=== PATIENT | male | born 1955 | race African-American/Black ===

== ENCOUNTER 2016-10-06 11:25 | Emergency (ER) | payer BC ==
--- NOTE | ~2016-10-06 | CT2 ---
[facility] A Service of [facility] & [facility] RADIOLOGY TEXT RESULTS PATIENT: EWELINA ALARCON LOCATION: [facility] : 55 UNIT #: [id number] AGE: [address]: Roberto Bustos MD SEX: M ORDER DR: [id number] [facility] [address] [place], [place] [address] [id number] MR#: [id number] Acc #: [id number] NAME: EWELINA ALARCON : 1955 SEX: M STUDY DATE/TIME: 10/06/2016 14:19 UNIT: [facility] ROOM: STUDY DESCRIPTION: CT Abd and Pelv W Cont Attending Physician: Roberto Bustos M.D. Ordering Physician: Roberto Bustos M.D. Primary Care Physician: Colin Mondragon M.D. MEDICAL IMAGING REPORT This report is preliminary unless electronic signature is present EXAM CT abdomen and pelvis 10/06 HISTORY Swelling in the groin area for 8 months. Left lower abdominal and groin pain for the last 3 days. TECHNIQUE Axial images were obtained through the abdomen and pelvis following oral and IV contrast administration. Multiplanar reformats were obtained. This CT exam was performed with one or more of the following radiation dose reduction techniques: automatic exposure control, adjustment of mA and/or kV according to patient size, and iterative reconstruction. COMPARISON STUDIES No comparison. FINDINGS ABDOMEN: Lung bases are clear, except for a left lower lobe calcified granuloma. There is a small hiatal hernia. GI tract is otherwise normal. There are bilateral renal cysts. Solid organs are otherwise unremarkable. No adenopathy or free fluid. PELVIS: The distal small bowel is normal. The prostate is enlarged. The appendix is normal. There is intense abnormal fat stranding in the left lower quadrant associated with the sigmoid colon. This presumably reflects acute diverticulitis. Additionally, there is a large left inguinal hernia containing abdominal fat as well as a loop of proximal sigmoid colon. Some of the inflammatory change extends into that hernia sac. Inflammatory change appears to displace the bladder to the right side of the pelvis. The hernia does not appear to be incarcerating. STS. [facility] A Service of [facility] & [facility] RADIOLOGY TEXT RESULTS PATIENT: EWELINA ALARCON [id number] 55 UNIT #: [id number] AGE: [address]: Roberto Bustos MD SEX: M ORDER DR: IMPRESSION 1. Fairly intense left lower quadrant fat stranding around the proximal sigmoid colon, which presumably is secondary to diverticulitis. There is a large left inguinal hernia. A portion of the proximal sigmoid colon extends into the hernia sac, as does some of the inflammation. This hernia sac does not appear to be incarcerating. 2. The remainder of the GI tract, including the appendix, is normal, except for a small hiatal hernia. 3. Prostate enlargement. 4. Consider CT follow up after any therapy is rendered to assess for improvement in the inflammatory change mentioned above. Dictated by... Colin Jackson Jr., M.D. THIS IS AN ELECTRONICALLY VERIFIED REPORT Colin Jackson Jr., M.D. at 10/06/2016 8:48 PM MIKKI/edward TD: 10/06/2016 17:17 JOB #: [id number] MEDICAL IMAGING REPORT Page 1 of 1 COPY
[~2016-10-06 11:25] MED LIST: ANUCORT-HC25 MG/SUPP PR
[2016-10-06 13:22] LABS: BASOPHIL% 0.4 % (0-2.5); EOSINOPHIL# 0.1 X10e3 (0-0.7); HEMATOCRIT 47.3 % (38.0-50.0); HEMOGLOBIN 15.3 gm/dL (13.0-16.0); LYMPHOCYTE# 1.9 X10e3 (1.0-3.5); MEAN CELL VOLUME 90.8 FL (83-96); MEAN CORPUSCULAR HEMOGLOBIN 29.3 PG (28-34); MEAN CORPUSCULAR HGB CONC 32.3 g/dL (30-36); MEAN PLATELET VOLUME 8.7 FL (6.5-11.5); MONOCYTE# 1.1 X10e3 (0-1.0); MONOCYTE% 8.6 % (3.0-12.0); NEUTROPHIL# 9.4 X10e3 (1.5-7.1); PLATELET COUNT 228 X10e3 (140-420); RED BLOOD COUNT 5.21 X10e (3.90-5.60); RED CELL DISTRIBUTION WIDTH 13.9 % (11.0-15.5); WHITE BLOOD COUNT 12.5 X10e3 (4.0-10.5)
[2016-10-06 13:26] LABS: DIFF IND NO
[2016-10-06 13:38] LABS: ALBUMIN SERUM 3.9 g/dL (3.5-5.0); BILIRUBIN, DIRECT 0.1 mg/dL (0.0-0.2); BILIRUBIN,INDIRECT 0.6 mg/dL (0.0-0.9); BILIRUBIN,TOTAL 0.7 mg/dL (0.2-2.0); BUN/CREATININE RATIO 13.33; CREATININE SERUM 1.2 mg/dL (0.6-1.4); GLOM FILT RATE Estimated 75.2 mL/min (>60); POTASSIUM 4.1 mmol/L (3.5-5.1); PROTEIN TOTAL SERUM 7.7 g/dL (6.0-8.3)
[2016-10-06 14:57] LABS: URINE SOURCE CLEAN CATCH
[2016-10-06 15:01] LABS: URINE APPEARANCE CLEAR; URINE BILIRUBIN NEG (NEG); URINE BLOOD NEG (NEG); URINE COLOR YELLOW; URINE GLUCOSE NEG (NEG); URINE KETONE NEG (NEG); URINE LEUKOCYTE ESTERASE NEG (NEG); URINE NITRATE NEG (NEG); URINE PROTEIN NEG (NEG); URINE SPECIFIC GRAVITY 1.041 (1.003-1.035); URINE UROBILINOGEN 0.2 MG/DL (NEG)
[2016-10-06 15:09] LABS: CULTURE INDICATED? NO
[2016-11-14] MEDS ORDERED: STOOL SOFTENER100 M1 PO (12:58)
== END 2016-10-06 15:36 | disposition home or self-care (01) ==
LOC: CED 11:25
PROVIDERS: Emergency Medicine
DX: K57.32 Diverticulitis of large intestine without perforation or abscess without bleeding (principal); K40.90 Unilateral inguinal hernia, without obstruction or gangrene, not specified as recurrent; K21.9 Gastro-esophageal reflux disease without esophagitis; F31.9 Bipolar disorder, unspecified; Z88.2 Allergy status to sulfonamides; Z79.899 Other long term (current) drug therapy
CPT/HCPCS: 36415; 74177; 80048; 80076; 81003; 85025; 99284; Q9967

== ENCOUNTER → 2016-11-14 | Outpatient (CLI) | payer BC ==
[~2016-11-14] MED LIST changes: +STOOL SOFTENER100 M1 PO
--- NOTE | ~2016-11-14 | EKG ---
PATIENT: EWELINA ALARCON UNIT #: [id number] Ventricular Rate: 59 BPM Atrial Rate: 59 BPM P-R Interval: 182 ms QRS Duration: 90 ms Q-T Interval: 394 ms QTC Calculation(Bezet): 390 ms P [place]: 36 degrees Calculated R [place]: 11 degrees Calculated T [place]: 15 degrees Diagnosis Line: Sinus bradycardia with sinus arrhythmia Diagnosis Line: Otherwise normal ECG Diagnosis Line: No previous ECGs available Diagnosis Line: Confirmed by ROSALIA NIETO MD ([id number]) on Diagnosis Line: 11/14/2016 5:28:38 PM INTERPRETING MD: EMILIA KELSEY
== END | disposition home or self-care (01) ==
LOC: CAMB 12:28
DX: Z01.818 Encounter for other preprocedural examination (principal); K40.90 Unilateral inguinal hernia, without obstruction or gangrene, not specified as recurrent; R00.1 Bradycardia, unspecified
CPT/HCPCS: 93005

== ENCOUNTER → 2016-11-17 | Day surgery (SDC) | payer BC ==
--- NOTE | ~2016-11-17 | OR ---
Unit #: [id number] #: [id number] Patient: EWELINA ALARCON [id number] [address] [place], [place] [address] [id number] MR#: [id number] NAME: EWELINA ALARCON ROOM: Date of Procedure: 11/17/2016 Admission Date: 11/17/2016 Surgeon: Troy Eubanks M.D. : 1955 Attending Physician: Troy Eubanks M.D. Primary Care Physician: Colin Mondragon M.D. OPERATIVE REPORT PREOPERATIVE DIAGNOSIS Left inguinal hernia. POSTOPERATIVE DIAGNOSIS Incarcerated indirect left inguinal hernia. PROCEDURE PERFORMED Laparoscopic preperitoneal inguinal hernia repair of incarcerated indirect left inguinal hernia. 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 ANESTHESIA General anesthesia. ESTIMATED BLOOD LOSS Minimal. IV FLUIDS 500 crystalloid. COMPLICATIONS None. INDICATIONS FOR PROCEDURE The patient is a 71-year-old, who presents with a left inguinal hernia. DESCRIPTION OF PROCEDURE The patient was taken to the operative theater and placed in supine position. General anesthesia was induced. His abdomen was prepped and draped. Infraumbilical incision was then made. A small incision was made in the anterior sheath. I created the preperitoneal space with blunt dissection and a Veress needle was placed intraabdominally. The abdomen was insufflated to 15 mmHg with CO2. Under direct vision, I placed a 5-mm port. The patient was placed in Trendelenburg. I identified the left-sided indirect inguinal hernia. No right-sided hernia. This was reduced with external palpation. I then used Autosuture balloon dissection system to create the preperitoneal space in left side only. I placed two 5-mm ports in the midline. I dissected the left groin, creating the lateral space. I identified Ethan ligament. I then skeletonized the cord and the hernia sac. I then the hernia sac Unit #: [id number] #: [id number] Patient: EWELINA ALARCON from the cord. This was then transected and ligated with an Endoloop. This effectively reduced the hernia. I then placed a large 3DMax mesh into position. This was anteriolized and covered the direct and indirect spaces nicely. This was secured to Ethan ligament with a SorbaFix Tacker. Hemostasis was adequate. Under direct vision, I released the pneumopreperitoneum with care taken to avoid the peritoneum sliding posterior to the mesh. I then removed the ports. The fascia was closed with 0 Vicryl and skin with 4-0 Vicryl. The patient tolerated the procedure well and sent to recovery room in good condition. Dictated by... Nichole Campo/maicol TD: 11/17/2016 14:05 JOB #: [id number] OPERATIVE REPORT Page 1 of 1 X Troy Eubanks MD X PROCEDURE OPERATIVE NOTE
== END | disposition home or self-care (01) ==
LOC: CSUR 06:52
PROVIDERS: Surgery
PROC: 0YU64JZ Supplement Left Inguinal Region with Synthetic Substitute, Percutaneous Endoscopic Approach (ICD-10-PCS; principal; 2016-11-17 09:00)
DX: K40.30 Unilateral inguinal hernia, with obstruction, without gangrene, not specified as recurrent (principal); Z87.19 Personal history of other diseases of the digestive system; Z88.2 Allergy status to sulfonamides; Z88.8 Allergy status to other drugs, medicaments and biological substances; Z98.890 Other specified postprocedural states; Z88.0 Allergy status to penicillin
CPT/HCPCS: C1781; J0131; J0330; J0690; J1100; J1644; J2250; J2405; J3010